=== PATIENT | male | born 1965 | race Caucasian/White ===

== ENCOUNTER → 2019-02-17 | Outpatient (CLI) | payer OTHER ==
[~2019-02-17] MED LIST: BACL1TAB8 PO; BIOT7500 PO; CLAR5CHW OR; CORDRAN EXT; DICL50TA2 PO; FLON0.05; FLUO0.05 TD; GLUCTAB6 PO; IBUP400T OR; LIDO5DIS EXT; LIPI1TAB2 OR; MOBI15TA PO; MUCI100L2 PO; NEXI1CAP3 OR; TRIAMCINOLONE ACE EXT; TRIAPOW5 TD; TYLE650T25 PO; VANI1CRE5 EXT; VANICREAM EXT; [UNRECOGNIZED DRUG - CODE] TD; [UNRECOGNIZED DRUG - OTHER] EXT; fluocinonide EXT; nyquil PO
--- NOTE | 2019-02-17 15:48 | REP ---
Clinical: Left apical nodule. Technique: Axial noncontrast images from the thoracic inlet to the upper abdomen with coronal and sagittal re-formations. Comparison: None. Findings: The bilateral lung nina are well-aerated, relatively symmetric and clear. Minimal scarring at the lingula noted. No consolidation, nodule, or mass lesion. No pleural effusion. No pneumothorax. Tracheobronchial tree is patent. No significant adenopathy. Mediastinum demonstrates relatively normal thoracic aorta, pulmonary vasculature and heart/pericardium. Surrounding musculoskeletal structures are intact and without focal osseous abnormality. Limited upper abdomen demonstrates normal bilateral adrenal glands. Impression: No acute mediastinal or pleuroparenchymal process appreciated. Electronically Signed by Terrance Trimble MD 02/17/2019 03:40 P
== END ==
LOC: M RAD 07:59
PROVIDERS: ATTEND Family Medicine
DX: R91.8 Other nonspecific abnormal finding of lung field (principal); M25.511 Pain in right shoulder

== ENCOUNTER → 2019-02-17 | Outpatient (CLI) | payer OTHER ==
--- NOTE | 2019-02-18 07:36 | REP ---
CT BILATERAL SHOULDERS: CT exam of bilateral shoulders performed in the axial plane with sagittal and coronal reconstruction images. On the right I do not see evidence of acute fracture or dislocation. There is mild narrowing and spurring at the acromioclavicular joint. There is a tiny calcification at the superolateral margin of the humeral head measuring 3 mm in diameter probably representing a tendinous calcification. This raises the possibility of calcific tendonitis. There is moderate narrowing of the glenohumeral joint. There is spurring of a moderate to severe degree at the inferior margin of the glenohumeral joint. There is mild subchondral sclerosis and cystic change. In the adjacent inferior bony glenoid there is a metallic structure which has the appearance of a metallic nail. This measures 4.8 cm in length. The head of the nail is located in the anterior inferior bony glenoid. It extends posteriorly through the posterior cortical margin of the bony glenoid, extending approximately 1.8 cm past the cortical surface into the soft tissues. Two small calcific bodies are seen along the anteromedial humeral neck, the largest is more inferiorly located and it measures about 5 mm in diameter. On the left no acute fracture or dislocation is seen. There is moderate narrowing and spurring at the acromioclavicular joint. There is mild narrowing of the glenohumeral joint. There is mild subchondral cystic change in the humeral head. There is a round calcific body in the subcoracoid region measuring 1 cm in diameter. Visualized soft tissue structures are unremarkable. Electronically Signed by Gilbert Edmonds MD 02/18/2019 12:40 P
== END ==
LOC: M RAD 08:10
DX: M19.012 Primary osteoarthritis, left shoulder (principal); M19.011 Primary osteoarthritis, right shoulder